=== PATIENT | male | born 1975 | race Caucasian/White ===

== ENCOUNTER 2016-08-30 07:40 | Observation (INO) | payer OTHER ==
[2016-08-30] MEDS ORDERED: Nitroglycerin 0.4 MG Tab.SL ONE (07:44)
[2016-08-30] MEDS ORDERED: Nitroglycerin 0.4 MG Tab.SL SL PRN (07:45)
--- NOTE | 2016-08-30 07:53 | EDM.PDOC ---
[id number] 4d AMBULANCE Time Seen by Provider: 08/30/16 07:46 Source of Information: Reports: Patient History Limitations: Reports: No Limitations - History of Present Illness INITIAL COMMENTS - FREE TEXT/NARRATIVE: History of present illness: [] Patient presents by EMS after having sudden onset of constricting chest pain at 7 AM while he was putting on his shoes getting ready to go to work. He states last night he did not feel well with fatigue and mild shortness of breath. He denied any chest pain last night. Patient states that when the chest pain started he became short of breath, sweaty and weak. Patient denies any cardiac history or family history of cardiac disease. Review of systems: As per history of present illness and below otherwise all systems reviewed and negative. Past medical history: As per history of present illness and as reviewed below otherwise noncontributory. Surgical history: As per history of present illness and as reviewed below otherwise noncontributory. Social history: No reported history of drug or alcohol abuse. Family history: As per history of present illness and as reviewed below otherwise noncontributory. Physical exam: General: Well developed, well nourished in NAD HEENT: Atraumatic, normocephalic, pupils reactive, negative for conjunctival pallor or scleral icterus, mucous membranes moist, throat clear, neck supple, nontender, trachea midline. Lungs: Clear to auscultation, breath sounds equal bilaterally, chest nontender. Heart: S1S2, regular, negative for clicks, rubs, or JVD. Abdomen: Soft, nondistended, nontender. Negative for masses or hepatosplenomegaly. Negative for costovertebral tenderness. Pelvis: Stable nontender. Genitourinary: Deferred. Rectal: Deferred. Extremities: Atraumatic, negative for cords or calf pain. Neurovascular unremarkable. Neuro: Awake, alert, oriented. Cranial nerves II through XII unremarkable. Cerebellum unremarkable. Motor and sensory unremarkable throughout. Exam nonfocal. Diagnostics: [] EKG and labs show no signs of acute ischemia percent her troponin is negative Therapeutics: [] Nitroglycerin given pain went from a 3/10 to a 0/10 with a total of 4 nitroglycerin tabs Impression: [] Acute coronary syndrome Plan: [] Admit for observation, rule out MT Definitive disposition and diagnosis as appropriate pending reevaluation and review of above. chest Pain Score (Numeric/FACES): 3 - Related Data Allergies Allergy/AdvReac Type Severity Reaction Status Date / Time No Known Allergies Allergy Verified 08/30/16 07:42 Home Meds: Home Meds . [No Known Home Meds] 08/30/16 [History] ED ROS GENERAL - Review of Systems Review Of Systems: See Below (See history of present illness) ED EXAM, GENERAL - Physical Exam Exam: See Below (See history of present illness) Course - Vital Signs Last Recorded V/S: Last Vital Signs Temp 36.7 C 08/30/16 09:24 Pulse 68 08/30/16 10:05 Resp 17 08/30/16 10:05 BP 133/93 H 08/30/16 10:05 Pulse Ox 95 08/30/16 10:05 - Orders/Labs/Meds Orders: Active Orders 24 hr Category Date Time Status Cardiac Monitoring [RC] Q8H Care 08/30/16 07:43 Active Chest 1V Frontal [CR] Stat Exams 08/30/16 07:41 Taken Labs: Laboratory Tests 08/30/16 08/30/16 08/30/16 Range/Units 07:49 07:49 07:49 WBC 4.94 (4.0-11.0) K/uL RBC 4.92 (4.50-5.90) M/uL Hgb 14.8 (13.0-17.0) g/dL Hct 43.4 (38.0-50.0) % MCV 88.2 (80.0-98.0) fL MCH 30.1 (27.0-32.0) pg MCHC 34.1 (31.0-37.0) g/dL RDW Std Deviation 39.5 (28.0-62.0) fl RDW Coeff of [place] 12 (11.0-15.0) % Plt Count 205 (150-400) K/uL MPV 9.70 (7.40-12.00) fL Neut % (Auto) 65.2 (48.0-80.0) % Lymph % (Auto) 25.3 (16.0-40.0) % [place] % (Auto) 6.1 (0.0-15.0) % Eos % (Auto) 2.8 (0.0-7.0) % Baso % (Auto) 0.6 (0.0-1.5) % Neut # (Auto) 3.2 (1.4-5.7) K/uL Lymph # (Auto) 1.3 (0.6-2.4) K/uL [place] # (Auto) 0.3 (0.0-0.8) K/uL Eos # (Auto) 0.1 (0.0-0.7) K/uL Baso # (Auto) 0.0 (0.0-0.1) K/uL Nucleated RBC % 0.0 /100WBC Nucleated RBCs # 0 K/uL Sodium 139 (136-146) mmol/L Potassium 3.9 (3.5-5.1) mmol/L Chloride 109 (98-110) mmol/L Carbon Dioxide 19 L (21-31) mmol/L BUN 18 (6.0-23.0) mg/dL Creatinine 1.1 (0.6-1.5) mg/dL Est Cr Clr Drug Dosing 95.04 mL/min Estimated GFR (MDRD) > 60.0 ml/min Glucose 113 H (60-110) mg/dL Calcium 9.2 (8.8-10.8) mg/dL Total Bilirubin 0.8 (0.1-1.5) mg/dL AST 29 (5-40) IU/L ALT 56 H (8-54) IU/L Alkaline Phosphatase 38 L (40-150) Troponin I < 0.10 (0.0-0.29) NG/ML Total Protein 6.9 (6.0-8.0) g/dL Albumin 4.3 (3.5-5.0) g/dL Globulin 2.6 (2.0-3.5) g/dL Albumin/Globulin Ratio 1.7 (1.3-2.8) Meds: Medications Discontinued Medications Generic Name Dose Route Start Last Admin Trade Name Freq PRN Reason Stop Dose Admin Sodium Chloride 1,000 mls @ 999 mls/hr 08/30/16 08:32 08/30/16 09:35 Normal Saline IV 08/30/16 09:32 999 mls/hr .Bolus ONE Administration Nitroglycerin 0.4 mg 08/30/16 07:45 08/30/16 07:46 Nitrostat SL 08/30/16 07:56 0.4 mg Q5M PRN Administration Chest Pain Nitroglycerin Confirm 08/30/16 07:44 08/30/16 07:46 Nitrostat Administered 08/30/16 07:45 Not Given Dose 0.4 mg .ROUTE .STK-MED ONE Nitroglycerin 1 gm 08/30/16 07:54 08/30/16 08:24 Nitro-Bid 2% TOP 08/30/16 07:55 Not Given ONETIME ONE Departure - Departure Time of Disposition: 10:19 Disposition: Refer to Observation Condition: good Clinical Impression: Acute coronary syndrome - My Orders Last 24 Hours: My Active Orders 08/30/16 07:41 Chest 1V Frontal [CR] Stat 08/30/16 07:43 Cardiac Monitoring [RC] Q8H - Assessment/Plan Last 24 Hours: My Active Orders 08/30/16 07:41 Chest 1V Frontal [CR] Stat 08/30/16 07:43 Cardiac Monitoring [RC] Q8H
[2016-08-30] MEDS ORDERED: Nitroglycerin 2% Oint 1 GM UD Packet TOP ONE (07:54)
[2016-08-30 08:22] LABS: CHLORIDE,CL 109 mmol/L (98-110); SODIUM,NA 139 mmol/L (136-146)
[2016-08-30] MEDS ORDERED: Sodium Chloride 0.9% 1,000 ML IV ONE (08:32)
[2016-08-30] MEDS ORDERED: Ondansetron 4 MG Tab.DIS PO PRN (11:08)
[2016-08-30] MEDS ORDERED: Acetaminophen 325 MG Tab PO PRN (11:08)
[2016-08-30] MEDS ORDERED: Temazepam 15 MG Cap PO PRN (11:08)
[2016-08-30] MEDS ORDERED: Bisacodyl 5 MG Tab PO PRN (11:08)
[2016-08-30] MEDS ORDERED: Morphine 2 MG/ML Syringe IVPUSH PRN (11:08)
[2016-08-30] MEDS: Pantoprazole 40 MG Tab.CR PO SCH ×2 (11:31→16:38)
--- NOTE | 2016-08-30 11:31 | PCM.HP ---
H&P History of Present Illness - General Date of Service: 08/30/16 Admit Problem/Dx: Admission Diagnosis/Problem Admission Diagnosis/Problem Chest pain - History of Present Illness Initial Comments - Free Text/Narative: He noted severe crushing central chest pain this am. He called 911. When EMS arrived he was given aspirin and nitroglycerin which resulted in improvement in symptoms. He now feels much better. He has a history of HTN and dyslipidemia. He has feelings of acid reflex nearly every morning. chest Pain Score (Numeric/FACES): 3 - Related Data Allergies/Adverse Reactions: Allergies Allergy/AdvReac Type Severity Reaction Status Date / Time No Known Allergies Allergy Verified 08/30/16 07:42 Home Medications: Home Meds . [No Known Home Meds] 08/30/16 [History] Past Medical History - Past Health History Medical/Surgical History: Denies Medical/Surgical History HEENT History: Reports: Impaired Vision Cardiovascular History: Reports: High Cholesterol, Hypertension Other Cardiovascular History: Not on Medication Respiratory History: Reports: Asthma Gastrointestinal History: Denies: Cirrhosis Genitourinary History: Denies: Chronic Renal Insuffiency Musculoskeletal History: Reports: None Neurological History: Reports: None. Denies: Brain Injury, MS Endocrine/Metabolic History: Denies: Diabetes, Type I, Diabetes, Type II Hematologic History: Denies: Anticoagulation Therapy Oncologic (Cancer) History: Reports: None - Infectious Disease History Infectious Disease History: Reports: Chicken pox, Influenza - Past Surgical History HEENT Surgical History: Reports: Tonsillectomy Cardiovascular Surgical History: Reports: None Respiratory Surgical History: Reports: None Neurological Surgical History: Reports: Other (see below) Other Neurological Surgeries/Procedures: Had head suregry to remove sharpnel a long time ago Musculoskeletal Surgical History: Reports: Carpal tunnel Social & Family History - Family History Family Medical History: Noncontributory HEENT: Reports: Impaired vision Cardiac: Reports: High cholesterol, Hypertension : Reports: Other (see below) Other Family History: Prostate Ca-Father Endocrine/Metabolic: Reports: Diabetes, type II Other Endocrine/Metabolic Family History: Mother Oncologic: Reports: Prostate - Tobacco Use Smoking Status *Q: Never Smoker Second Hand Smoke Exposure: Yes - Caffeine Use Caffeine Use: Reports: Coffee Caffeine Use Comment: 2 cups a day - Alcohol Use Days Per Week of Alcohol Use: 2 Number of Drinks Per Day: 2 Total Drinks Per Week: 4 Date of Last Drink: 08/16/16 - Recreational Drug Use Recreational Drug Use: No H&P Review of Systems - Review of Systems: Review Of Systems: See Below General: Denies: Fever, Chills HEENT: Denies: Sore Throat Pulmonary: Denies: Shortness of Breath, Cough Cardiovascular: Reports: Chest Pain. Denies: Edema Gastrointestinal: Denies: Abdominal Pain, Black Stool, Difficulty Swallowing, Hematemesis, Hematochezia Genitourinary: Denies: Dysuria, Frequency, Hematuria Exam - Exam Exam: See Below - Vital Signs Vital Signs: Last Vital Signs Temp 98.4 F 08/30/16 10:20 Pulse 66 08/30/16 10:20 Resp 18 08/30/16 10:20 BP 142/94 H 08/30/16 10:20 Pulse Ox 95 08/30/16 10:20 Weight: 114.2 kg - Exam General: Alert, Oriented HEENT: EOMI Neck: Trachea Midline Lungs: Clear to Auscultation, Normal Respiratory Effort Cardiovascular: Regular Rate, Regular Rhythm Abdomen: Soft. No: Distention, Guarding, Rebound, Tenderness Extremities: No: Edema Neurological: Cranial Nerves Intact, Normal Speech Neuro Extensive - Mental Status: Alert, Oriented x3 Neuro Extensive - Motor, Sensory, Reflexes: No: Expressive Aphasia, Facial palsy (L), Facial Palsy (R) - Patient Data Result Diagrams: 08/30/16 07:49 08/30/16 07:49 [place] Results last 24 hrs: EKG: NSR *Q Meaningful Use (ADM) - VTE *Q VTE Criteria *Q: - Stroke *Q Stroke Criteria *Q: - AMI *Q AMI Criteria *Q: - Problem List (1) Chest pain SNOMED Code(s): 81514156 ICD Code: R07.9 - CHEST PAIN, UNSPECIFIED Status: Acute Current Visit: Yes Problem List Initiated/Reviewed/Updated: Yes Orders Last 24hrs: Active Orders 24 hr Category Date Time Status Patient Status [ADT] Routine ADT 08/30/16 11:08 Active Antiembolic Devices [RC] PER UNIT ROUTINE Care 08/30/16 11:11 Active Oxygen Therapy [RC] PRN Care 08/30/16 11:08 Active Telemetry Monitoring [Cardiac Monitoring] [RC] Q8H Care 08/30/16 10:04 Active VTE/DVT Education [RC] PER UNIT ROUTINE Care 08/30/16 11:08 Active Vital Signs [RC] Q4H Care 08/30/16 11:08 Active Heart Healthy Diet [DIET] Diet 08/30/16 Dinner Active CMP [COMPREHENSIVE METABOLIC PN,CMP] [CHEM] Routine Lab 08/31/16 03:00 Ordered LIPID PANEL [CHEM] Routine Lab 08/31/16 03:00 Ordered TROPONIN I [CHEM] Q6H Lab 08/30/16 15:00 Ordered TROPONIN I [CHEM] Q6H Lab 08/30/16 21:00 Ordered TROPONIN I [CHEM] Q6H Lab 08/31/16 03:00 Ordered Acetaminophen [Tylenol] Med 08/30/16 11:08 Active 650 mg PO Q4H PRN Bisacodyl [Dulcolax] Med 08/30/16 11:08 Active 5 mg PO DAILY PRN Morphine Med 08/30/16 11:08 Active 2 mg IVPUSH Q2H PRN Ondansetron [Zofran ODT] Med 08/30/16 11:08 Active 4 mg PO Q4H PRN Pantoprazole [ProTONIX] Med 08/30/16 11:15 Active 40 mg PO BIDAC Temazepam [Restoril] Med 08/30/16 11:08 Active 15 mg PO BEDTIME PRN Sequential Compression Device [OM.PC] Per Unit Routine Oth 08/30/16 11:09 Ordered Resuscitation Status Routine Resus Stat 08/30/16 11:08 Ordered Medication Orders Acetaminophen (Tylenol) 650 mg PO Q4H PRN PRN Reason: Pain (Mild 1-3)/fever Bisacodyl (Dulcolax) 5 mg PO DAILY PRN PRN Reason: Constipation Morphine Sulfate (Morphine) 2 mg IVPUSH Q2H PRN PRN Reason: Pain (severe 7-10) Stop: 08/31/16 11:10 Ondansetron HCl (Zofran Odt) 4 mg PO Q4H PRN PRN Reason: nausea, able to take PO Pantoprazole Sodium (Protonix) 40 mg PO BIDAC JUSTIN Temazepam (Restoril) 15 mg PO BEDTIME PRN PRN Reason: Sleep Assessment/Plan Comment:: admit offered tranfer to a facility with further cardiology resources but he chooses to stay here realizing our limitions.
--- NOTE | 2016-08-30 19:59 | CR ---
EXAM DATE: 08/30/16 PATIENT'S AGE: 41 Patient: ALEJANDRO THOMPSON Facility: [place], [place] Site . Site : [id number] Study: XRay Chest [id number]/12/2017 7:55:10 AM Ordering Physician: Doctor Woods Final Report: INDICATION: Chest pain. COMPARISON: none TECHNIQUE: Portable AP erect chest performed at 7:47 a.m. FINDINGS: The lungs are clear. The heart, mediastinum and pulmonary vessels are of normal size. There is no evidence of pleural fluid. IMPRESSION: Negative chest. Dictated by Mark Anthony Escalona MD @ Aug 30 2016 8:11AM (Electronic Signature) Report Signed by Proxy. NANCY
[2016-08-31 03:28] LABS: CHLORIDE,CL 109 mmol/L (98-110); SODIUM,NA 141 mmol/L (136-146)
[2016-08-31] MEDS: Pantoprazole 40 MG Tab.CR PO SCH (06:41)
--- NOTE | 2016-08-31 11:48 | PCM.DCSUM1 ---
Discharge Summary - Hospital Course Free Text/Narrative:: 41 yo male with no pmh was admitted to observation for chest pain on 08/30/16. His chest pain began during the night after walking downstairs. It was accompanied by SOB. EMS was called and they gave him nirtroglycerin after which his chest pain improved significantly. Chest pain was mild by the time he got to ED, and while there he received Nitroglycerin, after which his chest pain completely resolved and did not recur. He was monitored on telemetry and there were no abnormalities. His troponin was trended and was negative. His initial EKG was normal. He denies use of alcohol or tobacco. He has no family history of heart disease. He was informed that he will need to have a stress test which we will arrange to schedule for him. He will also be set up with appointment to see our law enforcement director He [facility] therefore he was instructed to call them for set-up. Admission Diagnosis: 1. Chest Pain Discharge Diagnosis: 1. Chest Pain, improved -aspirin 81 mg daily -Nitroglycerin 0.4 mg SL for chest pain -f/u stress test -f/u with law enforcement director, Dr. Rowan -f/u with [facility] 2. Dyspepsia, stable -start Protonix 40 mg daily -f/u with [facility] 3. Hyperlipidemia -TC 251, LDL 189, HDL 30, Chol/HDL 8.4, TG 160 -did not start any lipid lowering therapy due to elevated ALT at admission. Although it was only mildly elevated and di return to normal, patient should have someone monitor his medications closely. Therefore we instructed patient to f/u with [facility] to discuss starting cholesterol lowering therapy. 4. Elevated ALT, improved - Discharge Data Discharge Date: 08/31/16 Discharge Disposition: Home, Self-Care 01 Condition: Good - Patient Instructions Diet: Regular Diet as Tolerated Activity: As Tolerated, Rest and Relax Today Showering/Bathing: May Shower Notify Provider of: Fever, Increased Pain, Swelling and Redness, Nausea and/or Vomiting - Discharge Plan Prescriptions/Med Rec: Aspirin 81 mg PO ONETIME #30 tab.chew Nitroglycerin 0.4 mg SL ONETIME PRN #10 tab.subl PRN Reason: Chest Pain Pantoprazole [ProTONIX] 40 mg PO ACBREAKFAST #30 tab.cr Home Medications: Home Meds Aspirin 81 mg PO ONETIME #30 tab.chew 08/31/16 [Rx] Nitroglycerin 0.4 mg SL ONETIME PRN #10 tab.subl 08/31/16 [Rx] Pantoprazole [ProTONIX] 40 mg PO ACBREAKFAST #30 tab.cr 08/31/16 [Rx] Patient Handouts: Nonspecific Chest Pain, [id number], Acute Coronary Syndrome Forms: ED Department Discharge Referrals: PCP,None [Primary Care Provider] - - Discharge Summary/Plan Comment DC Time >30 min.: No - Patient Data Vitals - Most Recent: Last Vital Signs Temp 35.9 C 08/31/16 07:49 Pulse 68 08/31/16 07:49 Resp 20 08/31/16 07:49 BP 136/91 H 08/31/16 07:49 Pulse Ox 95 08/31/16 07:49 Weight - Most Recent: 114.2 kg I&O - Last 24 hours: Intake & Output 08/30/16 08/31/16 08/31/16 22:59 06:59 14:59 Intake Total 570 500 Output Total 700 1000 Balance -130 -500 Lab Results - Last 24 hrs: Laboratory Results - last 24 hr 08/30/16 08/30/16 08/31/16 Range/Units 15:08 20:58 03:00 Sodium (136-146) mmol/L Potassium (3.5-5.1) mmol/L Chloride (98-110) mmol/L Carbon Dioxide (21-31) mmol/L BUN (6.0-23.0) mg/dL Creatinine (0.6-1.5) mg/dL Est Cr Clr Drug Dosing mL/min Estimated GFR (MDRD) ml/min Glucose (60-110) mg/dL Calcium (8.8-10.8) mg/dL Total Bilirubin (0.1-1.5) mg/dL AST (5-40) IU/L ALT (8-54) IU/L Alkaline Phosphatase (40-150) Troponin I < 0.10 < 0.10 < 0.10 (0.0-0.29) NG/ML Total Protein (6.0-8.0) g/dL Albumin (3.5-5.0) g/dL Globulin (2.0-3.5) g/dL Albumin/Globulin Ratio (1.3-2.8) Triglycerides (10-190) mg/dL Cholesterol (131-240) mg/dL LDL Cholesterol, Calc (60-180) mg/dL VLDL Cholesterol (5-55) mg/dL HDL Cholesterol (40-80) mg/dL Cholesterol/HDL Ratio (3.3-6.0) / Range/Units 03:00 Sodium 141 (136-146) mmol/L Potassium 4.4 (3.5-5.1) mmol/L Chloride 109 (98-110) mmol/L Carbon Dioxide 24 (21-31) mmol/L BUN 16 (6.0-23.0) mg/dL Creatinine 1.1 (0.6-1.5) mg/dL Est Cr Clr Drug Dosing 95.04 mL/min Estimated GFR (MDRD) > 60.0 ml/min Glucose 97 (60-110) mg/dL Calcium 8.9 (8.8-10.8) mg/dL Total Bilirubin 1.0 (0.1-1.5) mg/dL AST 23 (5-40) IU/L ALT 50 (8-54) IU/L Alkaline Phosphatase 38 L (40-150) Troponin I (0.0-0.29) NG/ML Total Protein 6.4 (6.0-8.0) g/dL Albumin 4.2 (3.5-5.0) g/dL Globulin 2.2 (2.0-3.5) g/dL Albumin/Globulin Ratio 1.9 (1.3-2.8) Triglycerides 160 (10-190) mg/dL Cholesterol 251 H (131-240) mg/dL LDL Cholesterol, Calc 189 H (60-180) mg/dL VLDL Cholesterol 32 (5-55) mg/dL HDL Cholesterol 30 L (40-80) mg/dL Cholesterol/HDL Ratio 8.4 H (3.3-6.0) Med Orders - Current: Current Medications Acetaminophen (Tylenol) 650 mg PO Q4H PRN PRN Reason: Pain (Mild 1-3)/fever Bisacodyl (Dulcolax) 5 mg PO DAILY PRN PRN Reason: Constipation Ondansetron HCl (Zofran Odt) 4 mg PO Q4H PRN PRN Reason: nausea, able to take PO Pantoprazole Sodium (Protonix) 40 mg PO BIDAC JUSTIN Last Admin: 08/31/16 06:41 Dose: 40 mg Temazepam (Restoril) 15 mg PO BEDTIME PRN PRN Reason: Sleep Discontinued Medications Sodium Chloride (Normal Saline) 1,000 mls @ 999 mls/hr IV .Bolus ONE Stop: 08/30/16 09:32 Last Admin: 08/30/16 09:35 Dose: 999 mls/hr Morphine Sulfate (Morphine) 2 mg IVPUSH Q2H PRN PRN Reason: Pain (severe 7-10) Stop: 08/31/16 11:10 Nitroglycerin (Nitrostat) 0.4 mg SL Q5M PRN PRN Reason: Chest Pain Stop: 08/30/16 07:56 Last Admin: 08/30/16 07:46 Dose: 0.4 mg Nitroglycerin (Nitrostat) Confirm Administered Dose 0.4 mg .ROUTE .STK-MED ONE Stop: 08/30/16 07:45 Last Admin: 08/30/16 07:46 Dose: Not Given Nitroglycerin (Nitro-Bid 2%) 1 gm TOP ONETIME ONE Stop: 08/30/16 07:55 Last Admin: 08/30/16 08:24 Dose: Not Given *Q Meaningful Use (DIS) - VTE *Q VTE Criteria *Q: - Stroke *Q Stroke Criteria *Q: - AMI *Q AMI Criteria *Q:
[2016-08-31 12:04] VITALS: BP 114/71
== END 2016-08-31 13:30 | disposition home or self-care (01) ==
LOC: MW.ED 07:40 → MW.MS 10:08
PROVIDERS: ADMIT Family Medicine; ATTEND Family Medicine
DX: R07.89 Other chest pain (principal); K30 Functional dyspepsia; E78.5 Hyperlipidemia, unspecified; R74.0 Nonspecific elevation of levels of transaminase and lactic acid dehydrogenase [LDH]; I10 Essential (primary) hypertension; E78.00 Pure hypercholesterolemia, unspecified; J45.909 Unspecified asthma, uncomplicated; Z90.89 Acquired absence of other organs; Z98.890 Other specified postprocedural states
CPT/HCPCS: 36415; 71010; 80053; 80061; 83735; 84484; 85025; 93005; 96360; 99285; A9270; J7040; 96361; G0378

== ENCOUNTER 2018-08-22 17:07 | Emergency (ER) | payer OTHER ==
--- NOTE | 2018-08-22 17:44 | EDM.PDOC ---
ED HPI GENERAL MEDICAL PROBLEM - General Chief Complaint: Drug or Alcohol Abuse Stated Complaint: ALCOHAL--SELF HARM Time Seen by Provider: 08/22/18 17:22 - History of Present Illness INITIAL COMMENTS - FREE TEXT/NARRATIVE: HISTORY AND PHYSICAL: History of present illness: The patient is a 42-year-old male who comes in via EMS to the ED after consuming alcohol today and being found in his garage after passing out by his . According to the reports from EMS and Police, he and his are going through some rough times and she was planning on leaving him and he has been very sad and depressed. He denies suicidal ideation to me but there was some concern by EMS and the employment security officer that he does have weapons in the house and that he may have expressed that he wanted to "go to sleep" . Interpretation of that is unclear as the patient denies that and said he literally just wanted to go to sleep tonight and sleep off his alcohol. He says that he did eat something earlier but he has not had much hydration and he denies smoking and drug use. He does of a history of being in the and follows at the [facility] with Dr. Dixon. The patient denies any abdominal pain chest pain shortness of breath head neck or back pain and no extremity complaints. He says he doesn't recall passing out but he is not surprised by it as he does not drink on a regular basis but did have a few beers 2 days ago. He admits that he has been drinking intermittently because of some of the things going on in his personal life. He has a significant alcoholic history for alcoholism or chronic alcohol use. The patient denies that he is having any physical complaints whatsoever. When we talk about his family and his current situation he is somewhat tearful but says that he has 4 grandchildren here in [place] and he is planning on seeing them tomorrow and he would not do anything to be from them. His is at bedside and denies to me that he has expressed any intent to harm himself but that he has been very sad and depressed. There was some concern about the patient having guns in the household per the officer at bedside and the patient insists that they are always locked up because he has his grandchildren over to his house often and when he had a out in the house were just polymer swatcher and no weapons were outside of their secure location Review of systems: As per history of present illness and below otherwise all systems reviewed and negative. Past medical history: As per history of present illness and as reviewed below otherwise noncontributory. Surgical history: As per history of present illness and as reviewed below otherwise noncontributory. Social history: No reported history of drug or alcohol abuse. Family history: As per history of present illness and as reviewed below otherwise noncontributory. Physical exam: General: Well-developed well-nourished man who is nontoxic and moves easily in the ED without any complaints. He speaking clearly and easily in the ED. Vital signs were noted by me HEENT: Atraumatic, normocephalic, pupils reactive, negative for conjunctival pallor or scleral icterus, mucous membranes moist, throat clear, neck supple, nontender, trachea midline. There is no evidence of any scalp defects deformities or soft tissue swelling no fascial defects deformities or tenderness bite is normal teeth are normal TMs are normal and there is no nasal bleeding. There are no midline step-offs tenderness or defects of the cervical spine Lungs: Clear to auscultation, breath sounds equal bilaterally, chest nontender. Heart: S1S2, regular, rate and rhythm no overt murmurs Abdomen: Soft, nondistended, nontender. Negative for masses or hepatosplenomegaly. Negative for costovertebral tenderness. Pelvis: Stable nontender. Genitourinary: Deferred. Rectal: Deferred. Extremities: Atraumatic, negative for cords or calf pain. Neurovascular unremarkable. Full range of motion without defects or deficits and there is no soft tissue swelling erythema ecchymosis or soft tissue injuries Neuro: Awake, alert, oriented. Cranial nerves II through XII unremarkable. Cerebellum unremarkable. Motor and sensory unremarkable throughout. Exam nonfocal. Speech is intact Back: There are no midline step-offs or defects of the thoracic or lumbar spine no posterior rib or posterior pelvis tenderness and no soft tissue swelling defects or any evidence of trauma Diagnostics: EKG chest x-ray CT scan of the head Accu-Chek per EMS, CBC CMP troponin alcohol level TSH [employer]A [employer]rapeutics: O2 pulse ox monitor is at bedside and says that she does have resources and will help him get [facility]. I've advised the patient to pursue counseling as an outpatient and to return here if anything changes or evolves. I've also advised him to refrain from drinking alcohol as self-medication and to research other areas where he can have conversation and counseling such as the synagogue family and friends. He is awake alert and coherent and speaking to me clearly and both he and the are very grateful and said that they will return as needed but feel that they have a plan going forward. She is going to take him home and feels comfortable with that despite other issues that are going on in the household. Please also feel comfortable with this plan and will be available as needed. Did offer the patient observation admission and he declines at this time. Impression: Alcohol ingestion with syncope Definitive disposition and diagnosis as appropriate pending reevaluation and review of above. - Related Data Allergies Allergy/AdvReac Type Severity Reaction Status Date / Time No Known Allergies Allergy Verified 08/22/18 17:22 Home Meds: Home Meds . [No Known Home Meds] 08/22/18 [History] Past Medical History - Past Health History Medical/Surgical History: Denies Medical/Surgical History HEENT History: Reports: Other (See Below) Other HEENT History: wears glasses Cardiovascular History: Reports: High Cholesterol, Hypertension Other Cardiovascular History: Not on Medication for cholesterol - borderline Musculoskeletal History: Reports: Arthritis, Fracture Other Musculoskeletal History: hx of fx right wrist as a child Neurological History: Reports: None Psychiatric History: Reports: None Oncologic (Cancer) History: Reports: None - Infectious Disease History Infectious Disease History: Reports: Chicken Pox, Influenza - Past Surgical History HEENT Surgical History: Reports: Tonsillectomy Cardiovascular Surgical History: Reports: None Neurological Surgical History: Reports: Other (See Below) Other Neurological Surgeries/Procedures: Had head suregry to remove sharpnel a long time ago Musculoskeletal Surgical History: Reports: Carpal Tunnel Social & Family History - Family History Family Medical History: Noncontributory HEENT: Reports: Impaired Vision Cardiac: Reports: High Cholesterol, Hypertension : Reports: Other (See Below) Other Family History: Prostate Ca-Father Endocrine/Metabolic: Reports: Diabetes, type II Other Endocrine/Metabolic Family History: Mother Oncologic: Reports: Prostate - Tobacco Use Smoking Status *Q: Never Smoker - Caffeine Use Caffeine Use: Reports: Coffee, Energy Drinks, Soda, Tea Caffeine Use Comment: 2 cups a day - Recreational Drug Use Recreational Drug Use: No ED ROS GENERAL - Review of Systems Review Of Systems: ROS reveals no pertinent complaints other than HPI. ED EXAM, GENERAL - Physical Exam Exam: See Below (see Dictation) Course - Vital Signs Last Recorded V/S: Last Vital Signs Temp 36.8 C 08/22/18 17:19 Pulse 80 08/22/18 17:19 Resp BP 151/99 H 08/22/18 17:19 Pulse Ox 97 08/22/18 17:19 - Orders/Labs/Meds Orders: Active Orders 24 hr Category Date Time Status Blood Glucose Check, Bedside [RC] ONETIME Care 08/22/18 17:24 Active Cardiac Monitoring [RC] . DIRECTED Care 08/22/18 17:37 Active EKG Documentation Completion [RC] STAT Care 08/22/18 17:37 Active Oxygen Therapy, ED [RC] ASDIRECTED Care 08/22/18 17:37 Active Pulse Oximetry [RC] ASDIRECTED Care 08/22/18 17:37 Active Labs: Laboratory Tests 08/22/18 08/22/18 08/22/18 Range/Units 17:17 17:47 17:47 WBC 7.38 (4.0-11.0) K/uL RBC 5.00 (4.50-5.90) M/uL Hgb 15.4 (13.0-17.0) g/dL Hct 45.9 (38.0-50.0) % MCV 91.8 (80.0-98.0) fL MCH 30.8 (27.0-32.0) pg MCHC 33.6 (31.0-37.0) g/dL RDW Std Deviation 43.4 (28.0-62.0) fl RDW Coeff of [place] 13 (11.0-15.0) % Plt Count 225 (150-400) K/uL MPV 9.70 (7.40-12.00) fL Neut % (Auto) 75.5 (48.0-80.0) % Lymph % (Auto) 16.3 (16.0-40.0) % [place] % (Auto) 6.0 (0.0-15.0) % Eos % (Auto) 1.9 (0.0-7.0) % Baso % (Auto) 0.3 (0.0-1.5) % Neut # (Auto) 5.6 (1.4-5.7) K/uL Lymph # (Auto) 1.2 (0.6-2.4) K/uL [place] # (Auto) 0.4 (0.0-0.8) K/uL Eos # (Auto) 0.1 (0.0-0.7) K/uL Baso # (Auto) 0.0 (0.0-0.1) K/uL Nucleated RBC % 0.0 /100WBC Nucleated RBCs # 0 K/uL Sodium 142 (136-148) mmol/L Potassium 4.0 (3.5-5.1) mmol/L Chloride 105 (98-107) mmol/L Carbon Dioxide 23.7 (21.0-32.0) mmol/L BUN 14 (7.0-18.0) mg/dL Creatinine 1.3 (0.8-1.3) mg/dL Est Cr Clr Drug Dosing 79.59 mL/min Estimated GFR (MDRD) 60.0 ml/min Glucose 94 (74-106) mg/dL Calcium 8.9 (8.5-10.1) mg/dL Total Bilirubin 0.5 (0.2-1.0) mg/dL AST 33 (15-37) IU/L ALT 76 H (14-63) IU/L Alkaline Phosphatase 40 L (46-116) U/L Troponin I < 0.050 (0.000-0.056) ng/mL Total Protein 7.4 (6.4-8.2) g/dL Albumin 3.9 (3.4-5.0) g/dL Globulin 3.5 (2.6-4.0) g/dL Albumin/Globulin Ratio 1.1 (0.9-1.6) TSH 3rd Generation 3.06 (0.36-3.74) uIU/mL Urine Color YELLOW Urine Appearance CLEAR Urine pH 5.5 (5.0-8.0) Ur Specific [place] 1.020 (1.001-1.035) Urine Protein NEGATIVE (NEGATIVE) mg/dL Urine Glucose (UA) NEGATIVE (NEGATIVE) mg/dL Urine Ketones NEGATIVE (NEGATIVE) mg/dL Urine Occult Blood NEGATIVE (NEGATIVE) Urine Nitrite NEGATIVE (NEGATIVE) Urine Bilirubin NEGATIVE (NEGATIVE) Urine Urobilinogen 0.2 (<2.0) EU/dL Ur Leukocyte Esterase NEGATIVE (NEGATIVE) Ethyl Alcohol 78 mg/dL Departure - Departure Time of Disposition: 18:36 Disposition: Home, Self-Care 01 Condition: Good Clinical Impression: Alcohol ingestion Syncope Qualifiers: Syncope type: unspecified Qualified Code(s): R55 - Syncope and collapse - Discharge Information Referrals: PCP,Unknown [Primary Care Provider] - Forms: ED Department Discharge Additional Instructions: The following information is given to patients seen in the emergency department who are being discharged to home. This information is to outline your options for follow-up care. We provide all patients seen in our emergency department with a follow-up referral. The need for follow-up, as well as the timing and circumstances, are variable depending upon the specifics of your emergency department visit. If you don't have a primary care physician on staff, we will provide you with a referral. We always advise you to contact your personal physician following an emergency department visit to inform them of the circumstance of the visit and for follow-up with them and/or the need for any referrals to a consulting specialist. The emergency department will also refer you to a specialist when appropriate. This referral assures that you have the opportunity for followup care with a specialist. All of these measure are taken in an effort to provide you with optimal care, which includes your followup. Under all circumstances we always encourage you to contact your private physician who remains a resource for coordinating your care. When calling for followup care, please make the office aware that this follow-up is from your recent emergency room visit. If for any reason you are refused follow-up, please contact the [facility] emergency department at and ask to speak to the emergency department charge nurse. [facility]- [place] [address] [facility] and discussed with Dr. Dixon some of the issues going on and also addressed with him your blood pressure as needed. Push hydration and avoid alcohol as we discussed. Reduce sodium in her diet. Return to ER as needed and as we discussed. - My Orders Last 24 Hours: My Active Orders 08/22/18 17:24 Blood Glucose Check, Bedside [RC] ONETIME 08/22/18 17:37 Cardiac Monitoring [RC] . DIRECTED EKG Documentation Completion [RC] STAT Oxygen Therapy, ED [RC] ASDIRECTED Pulse Oximetry [RC] ASDIRECTED - Assessment/Plan Last 24 Hours: My Active Orders 08/22/18 17:24 Blood Glucose Check, Bedside [RC] ONETIME 08/22/18 17:37 Cardiac Monitoring [RC] . DIRECTED EKG Documentation Completion [RC] STAT Oxygen Therapy, ED [RC] ASDIRECTED Pulse Oximetry [RC] ASDIRECTED
--- NOTE | 2018-08-22 18:09 | CR ---
INDICATION: Chest pain, shortness of breath TECHNIQUE: Chest radiograph 1 view COMPARISON: None FINDINGS: Mediastinum: The mediastinum is normal in appearance. The heart silhouette is normal in size and morphology. Lung: Both lungs are unremarkable in appearance. No sign of pleural effusion seen. No pneumothorax is identified. Musculoskeletal: Unremarkable for age. IMPRESSION: 1. No acute cardiopulmonary disease is seen. Dictated by: Fabien Vang MD @ 08/22/2018 18:08:30 (Electronically Signed)
--- NOTE | 2018-08-22 18:16 | CT ---
INDICATION: Head injury from fall, patient is intoxicated. TECHNIQUE: CT Head without i.v. contrast. COMPARISON: None FINDINGS: CSF space: The ventricles are normal for age. Brain: No evidence of mass, acute infarction or hemorrhage is seen. No mass-effect or midline shift is seen. The brain parenchyma is otherwise normal in appearance with preservation of the walker-white matter junction. Calvarium: The visualized paranasal sinuses are well aerated. The mastoid air cells are clear. The visualized orbits are grossly unremarkable. The calvarium is unremarkable in appearance with no fractures identified. There is a well-circumscribed 9 mm nodule in the subcutaneous soft tissues of the left occipital region. This may represent a sebaceous cyst. IMPRESSION: 1. No evidence of acute infarction, intracranial hemorrhage, or mass-effect seen. Dictated by Fabien Vang MD @ 08/22/2018 6:14:45 PM Please note that all CT scans at this facility use dose modulation, iterative reconstruction, and/or weight-based dosing when appropriate to reduce radiation dose to as low as reasonably achievable. Dictated by: Fabien Vnag MD @ 08/22/2018 18:14:53 (Electronically Signed)
[2018-08-22 18:19] LABS: CHLORIDE,CL 105 mmol/L (98-107); SODIUM,NA 142 mmol/L (136-148)
[2018-08-22 18:55] VITALS: BP 144/96
== END 2018-08-22 18:55 | disposition home or self-care (01) ==
LOC: MW.ED 17:07
DX: R55 Syncope and collapse (principal); I10 Essential (primary) hypertension; E78.00 Pure hypercholesterolemia, unspecified
CPT/HCPCS: 36415; 70450; 71045; 80053; 81003; 84443; 84484; 85025; 93005; 99285; G0480; 99284

== ENCOUNTER 2018-09-18 01:11 | Emergency (ER) | payer OTHER ==
--- NOTE | 2018-09-18 01:27 | EDM.PDOC ---
ED HPI GENERAL MEDICAL PROBLEM - General Chief Complaint: Behavioral/Psych Stated Complaint: MENTAL HEALTH Time Seen by Provider: 09/18/18 01:14 - History of Present Illness INITIAL COMMENTS - FREE TEXT/NARRATIVE: HISTORY AND PHYSICAL: History of present illness: Patient 43-year-old white male presents with law enforcement for medical screening exam patient has been dealing with some depressive symptoms and has a scheduled appointment on Friday for evaluation and possible inpatient treatment he states he's been depressed off and on but the scheduled appointment and possible inpatient is been mitigated by his need to organize some things at his place of employment prior to his departure for inpatient therapy he's has no suicidal ideation now he is not intoxicated he is polite cooperative has a place to go in law enforcement is indeed in agreement with the circumstances of their involvement and his current posture Review of systems: As per history of present illness and below otherwise all systems reviewed and negative. Past medical history: As per history of present illness and as reviewed below otherwise noncontributory. Surgical history: As per history of present illness and as reviewed below otherwise noncontributory. Social history: No reported history of drug or alcohol abuse. Family history: As per history of present illness and as reviewed below otherwise noncontributory. Physical exam: HEENT: Atraumatic, normocephalic, pupils reactive, negative for conjunctival pallor or scleral icterus, mucous membranes moist, throat clear, neck supple, nontender, trachea midline. Lungs: Clear to auscultation, breath sounds equal bilaterally, chest nontender. Heart: S1S2, regular, negative for clicks, rubs, or JVD. Abdomen: Soft, nondistended, nontender. Negative for masses or hepatosplenomegaly. Negative for costovertebral tenderness. Pelvis: Stable nontender. Genitourinary: Deferred. Rectal: Deferred. Extremities: Atraumatic, negative for cords or calf pain. Neurovascular unremarkable. Neuro: Awake, alert, oriented. Cranial nerves II through XII unremarkable. Cerebellum unremarkable. Motor and sensory unremarkable throughout. Exam nonfocal. Diagnostics: None Therapeutics: None Impression: 1 medical screening exam #2 history of depression Definitive disposition and diagnosis as appropriate pending reevaluation and review of above. - Related Data Allergies Allergy/AdvReac Type Severity Reaction Status Date / Time No Known Allergies Allergy Verified 08/22/18 17:22 Home Meds: Home Meds . [No Known Home Meds] 08/22/18 [History] Past Medical History - Past Health History Medical/Surgical History: Denies Medical/Surgical History HEENT History: Reports: Other (See Below) Other HEENT History: wears glasses Cardiovascular History: Reports: High Cholesterol, Hypertension Other Cardiovascular History: Not on Medication for cholesterol - borderline Musculoskeletal History: Reports: Arthritis, Fracture Other Musculoskeletal History: hx of fx right wrist as a child Neurological History: Reports: None Psychiatric History: Reports: None Oncologic (Cancer) History: Reports: None - Infectious Disease History Infectious Disease History: Reports: Chicken Pox, Influenza - Past Surgical History HEENT Surgical History: Reports: Tonsillectomy Cardiovascular Surgical History: Reports: None Neurological Surgical History: Reports: Other (See Below) Other Neurological Surgeries/Procedures: Had head suregry to remove sharpnel a long time ago Musculoskeletal Surgical History: Reports: Carpal Tunnel Social & Family History - Family History Family Medical History: Noncontributory HEENT: Reports: Impaired Vision Cardiac: Reports: High Cholesterol, Hypertension : Reports: Other (See Below) Other Family History: Prostate Ca-Father Endocrine/Metabolic: Reports: Diabetes, type II Other Endocrine/Metabolic Family History: Mother Oncologic: Reports: Prostate - Caffeine Use Caffeine Use: Reports: Coffee, Energy Drinks, Soda, Tea Caffeine Use Comment: 2 cups a day ED ROS GENERAL - Review of Systems Review Of Systems: ROS reveals no pertinent complaints other than HPI. ED EXAM, GENERAL - Physical Exam Exam: See Below (dictation) Course - Vital Signs Last Recorded V/S: Last Vital Signs Temp 36.4 C 09/18/18 01:15 Pulse 103 H 09/18/18 01:15 Resp 18 09/18/18 01:15 BP 161/112 H 09/18/18 01:15 Pulse Ox 98 09/18/18 01:15 Departure - Departure Time of Disposition: 01:27 Disposition: Home, Self-Care 01 Condition: Good Clinical Impression: Encounter for medical screening examination - Discharge Information Referrals: PCP,None [Primary Care Provider] - Additional Instructions: The following information is given to patients seen in the emergency department who are being discharged to home. This information is to outline your options for follow-up care. We provide all patients seen in our emergency department with a follow-up referral. The need for follow-up, as well as the timing and circumstances, are variable depending upon the specifics of your emergency department visit. If you don't have a primary care physician on staff, we will provide you with a referral. We always advise you to contact your personal physician following an emergency department visit to inform them of the circumstance of the visit and for follow-up with them and/or the need for any referrals to a consulting specialist. The emergency department will also refer you to a specialist when appropriate. This referral assures that you have the opportunity for followup care with a specialist. All of these measure are taken in an effort to provide you with optimal care, which includes your followup. Under all circumstances we always encourage you to contact your private physician who remains a resource for coordinating your care. When calling for followup care, please make the office aware that this follow-up is from your recent emergency room visit. If for any reason you are refused follow-up, please contact the [facility] emergency department at and asked to speak to the emergency department charge nurse. Follow-up with primary medical doctor in psychiatric services as scheduled return as needed as discussed continue current medication
[2018-09-18 01:50] VITALS: BP 148/99
== END 2018-09-18 01:40 | disposition home or self-care (01) ==
LOC: MW.ED 01:11
DX: Z13.9 Encounter for screening, unspecified (principal); F32.9 Major depressive disorder, single episode, unspecified; I10 Essential (primary) hypertension
CPT/HCPCS: 99284

== ENCOUNTER 2019-09-25 13:28 | Emergency (ER) | payer OTHER ==
[2019-09-25] MEDS ORDERED: Sodium Chloride 0.9% 2.5 ML Syringe FLUSH PRN (13:43)
[2019-09-25] MEDS ORDERED: Sodium Chloride 0.9% 10 ML Syringe FLUSH PRN (13:43)
[2019-09-25] MEDS ORDERED: Aspirin 81 MG Tab.Chew PO ONE (13:58)
--- NOTE | 2019-09-25 14:00 | EDM.PDOC ---
ED HPI GENERAL MEDICAL PROBLEM - General Chief Complaint: Chest Pain Stated Complaint: CHEST PAIN Time Seen by Provider: 09/25/19 13:35 Source of Information: Reports: Patient History Limitations: Reports: No Limitations - History of Present Illness INITIAL COMMENTS - FREE TEXT/NARRATIVE: This patient is a 44-year-old male with a past medical history of hypertension hyperlipidemia presenting with chest pain. He reports the onset of substernal chest pressure around 8:30 AM this morning while at rest. Nothing makes the chest pain better or worse, it is been constant throughout the day, nonradiating. Denies any associated diaphoresis, palpitations, shortness of breath, nausea, or vomiting. No self treatment prior to arrival, no other complaints. Left Chest Pain Score (Numeric/FACES): 6 - Related Data Allergies Allergy/AdvReac Type Severity Reaction Status Date / Time No Known Allergies Allergy Verified 09/25/19 13:34 Home Meds: Home Meds . [No Known Home Meds] 08/22/18 [History] Past Medical History - Past Health History Medical/Surgical History: Denies Medical/Surgical History HEENT History: Reports: Other (See Below) Other HEENT History: wears glasses Cardiovascular History: Reports: High Cholesterol, Hypertension Other Cardiovascular History: Not on Medication for cholesterol - borderline Musculoskeletal History: Reports: Arthritis, Fracture Other Musculoskeletal History: hx of fx right wrist as a child Neurological History: Reports: None Psychiatric History: Reports: None Endocrine/Metabolic History: Reports: Obesity/BMI 30+ Oncologic (Cancer) History: Reports: None - Infectious Disease History Infectious Disease History: Reports: Chicken Pox, Influenza - Past Surgical History HEENT Surgical History: Reports: Tonsillectomy Cardiovascular Surgical History: Reports: None Neurological Surgical History: Reports: Other (See Below) Other Neurological Surgeries/Procedures: Had head suregry to remove sharpnel a long time ago Musculoskeletal Surgical History: Reports: Carpal Tunnel Social & Family History - Family History Family Medical History: Noncontributory HEENT: Reports: Impaired Vision Cardiac: Reports: High Cholesterol, Hypertension : Reports: Other (See Below) Other Family History: Prostate Ca-Father Endocrine/Metabolic: Reports: Diabetes, type II Other Endocrine/Metabolic Family History: Mother Oncologic: Reports: Prostate - Tobacco Use Smoking Status *Q: Never Smoker Second Hand Smoke Exposure: No - Caffeine Use Caffeine Use: Reports: None Caffeine Use Comment: 2 cups a day - Recreational Drug Use Recreational Drug Use: No ED ROS GENERAL - Review of Systems Review Of Systems: See Below Constitutional: Denies: Fever, Chills HEENT: Reports: No Symptoms Respiratory: Denies: Shortness of Breath, Pleuritic Chest Pain, Cough Cardiovascular: Reports: Chest Pain. Denies: Edema, Lightheadedness, Syncope Endocrine: Reports: No Symptoms GI/Abdominal: Denies: Abdominal Pain, Nausea, Vomiting : Reports: No Symptoms Musculoskeletal: Denies: Back Pain Skin: Denies: Pallor Neurological: Denies: Headache Psychiatric: Reports: No Symptoms Hematologic/Lymphatic: Reports: No Symptoms Immunologic: Reports: No Symptoms ED EXAM, GENERAL - Physical Exam Exam: See Below Free Text/Narrative:: Vital signs reviewed. Nursing notes reviewed. Constitutional: Awake, alert, non-distressed. Head: Normocephalic, atraumatic. Eyes: EOMI, conjunctiva normal, no discharge, no scleral icterus. Ears, Nose, Throat: External ears and nose normal, moist oral mucosa. Cardiovascular: 2+ radial pulses bilaterally, capillary refill less than 2 seconds. RRR, no M/R/G Pulmonary: normal work of breathing, no accessory muscle use. CTA BL Abdomen/GI: Soft, nontender, nondistended, no guarding or rigidity, no masses. Musculoskeletal: No deformities. Integumentary: Appropriate color for ethnicity, warm, dry, no pallor or jaundice , no rash. Neurologic: Alert, answering questions appropriately, normal speech, no facial droop, moving all extremities well. Psychiatric: Appropriate mood and affect, normal thought process. EKG INTERPRETATION EKG Interpretation Comments: 12-Lead ECG Interpretation Acquired: 1:32 PM Rhythm: Sinus rhythm Rate: 65 bpm Victor: Normal Intervals: Normal Ectopy: None Ischemic Changes: None apparent RV Strain: No obvious RV strain pattern. ST Segments/T-Waves: Isolated T wave inversions in lead III, along with Q waves. These are not appreciated in leads II or aVF or elsewhere. Interpretation: Abnormal EKG Course - Vital Signs Text/Narrative:: 44-year-old male presenting with chest pain. Patient [hemodynamically stable, afebrile], well-appearing, looks nontoxic. Differential diagnosis includes but is not limited to: Acute coronary syndrome, pulmonary embolism, STEMI, thoracic aortic dissection, pneumothorax, Boerhaave syndrome, GERD, atypical chest pain, pleurisy, pericardial effusion, etc. Initially mildly hypertensive on arrival but well-appearing. Twelve-lead EKG was immediately obtained, showing no acute ischemia or ectopy. Full dose aspirin was given. IV access was established and labs were sent. CBC is unremarkable. Chemistry panel shows mildly elevated BUN at 21. Troponin is negative x2. Hepatic markers are unremarkable. Chest x-ray is clear. Pain improved after aspirin. 2 negative troponins and 2 nonischemic EKGs. HEART score is 1, with very low risk for 30-day Mace. Consider pulmonary embolism but no resting tachycardia, hypoxia. No pleuritic chest pain, no shortness of breath, no leg swelling. Equal radial pulses, pain does not radiate to the back, and the patient is not markedly hypertensive. No vomiting to suggest esophageal rupture. No objective evidence of myocardial ischemia. Patient is well-appearing and work-up is negative to date. Plan to discharge home with outpatient cardiology follow-up. Recommended low-dose aspirin daily until this occurs. Tylenol Motrin OTC for pain as needed. Strict emergency department return precautions were provided, patient indicated understanding. All questions were answered prior to departure. Discharged in good condition. Last Recorded V/S: Last Vital Signs Temp 36.4 C 09/25/19 13:31 Pulse 56 L 09/25/19 15:39 Resp 12 09/25/19 15:39 BP 119/77 09/25/19 15:39 Pulse Ox 97 09/25/19 15:39 - Orders/Labs/Meds Orders: Active Orders 24 hr Category Date Time Status Cardiac Monitoring [RC] . DIRECTED Care 09/25/19 13:59 Active EKG 12 Lead [EKG Documentation Completion] [RC] STAT Care 09/25/19 14:33 Active EKG Documentation Completion [RC] STAT Care 09/25/19 13:43 Active Pulse Oximetry [RC] ASDIRECTED Care 09/25/19 13:59 Active Saline Lock Insert [OM.PC] Stat Oth 09/25/19 13:43 Ordered Labs: Laboratory Tests 09/25/19 09/25/19 09/25/19 Range/Units 13:42 13:42 14:44 WBC 4.43 (4.0-11.0) K/uL RBC 4.91 (4.50-5.90) M/uL Hgb 14.8 (13.0-17.0) g/dL Hct 44.1 (38.0-50.0) % MCV 89.8 (80.0-98.0) fL MCH 30.1 (27.0-32.0) pg MCHC 33.6 (31.0-37.0) g/dL RDW Std Deviation 41.3 (28.0-62.0) fl RDW Coeff of [place] 13 (11.0-15.0) % Plt Count 197 (150-400) K/uL MPV 9.50 (7.40-12.00) fL Neut % (Auto) 64.9 (48.0-80.0) % Lymph % (Auto) 25.3 (16.0-40.0) % [place] % (Auto) 5.9 (0.0-15.0) % Eos % (Auto) 3.4 (0.0-7.0) % Baso % (Auto) 0.5 (0.0-1.5) % Neut # (Auto) 2.9 (1.4-5.7) K/uL Lymph # (Auto) 1.1 (0.6-2.4) K/uL [place] # (Auto) 0.3 (0.0-0.8) K/uL Eos # (Auto) 0.2 (0.0-0.7) K/uL Baso # (Auto) 0.0 (0.0-0.1) K/uL Nucleated RBC % 0.0 /100WBC Nucleated RBCs # 0 K/uL Sodium 142 (136-148) mmol/L Potassium 4.3 (3.5-5.1) mmol/L Chloride 105 (98-107) mmol/L Carbon Dioxide 28.7 (21.0-32.0) mmol/L BUN 21 H (7.0-18.0) mg/dL Creatinine 1.2 (0.8-1.3) mg/dL Est Cr Clr Drug Dosing 84.43 mL/min Estimated GFR (MDRD) > 60.0 ml/min Glucose 88 (74-106) mg/dL Calcium 8.4 L (8.5-10.1) mg/dL Total Bilirubin 0.8 (0.2-1.0) mg/dL AST 10 L (15-37) IU/L ALT 32 (14-63) IU/L Alkaline Phosphatase 40 L (46-116) U/L Troponin I < 0.050 < 0.050 (0.000-0.056) ng/mL Total Protein 7.0 (6.4-8.2) g/dL Albumin 3.9 (3.4-5.0) g/dL Globulin 3.1 (2.6-4.0) g/dL Albumin/Globulin Ratio 1.3 (0.9-1.6) Meds: Medications Discontinued Medications Generic Name Dose Route Start Last Admin Trade Name Freq PRN Reason Stop Dose Admin Aspirin 324 mg 09/25/19 13:58 09/25/19 14:06 Aspirin PO 09/25/19 13:59 324 mg ONETIME ONE Administration Sodium Chloride 10 ml 09/25/19 13:43 09/25/19 13:55 Saline Flush FLUSH 10 ml ASDIRECTED PRN Administration Keep Vein Open Sodium Chloride 2.5 ml 09/25/19 13:43 09/25/19 13:55 Saline Flush FLUSH 2.5 ml ASDIRECTED PRN Administration Keep Vein Open Departure - Departure Time of Disposition: 15:32 Disposition: Home, Self-Care 01 Condition: Good Clinical Impression: Atypical chest pain Instructions: Nonspecific Chest Pain, Adult Referrals: Javon Jasso, [facility] [Primary Care Provider] - 1 Week (I recommend following up your with your state fire marshal or your primary care doctor the next 1 to 2 weeks for reevaluation of your chest pain.) Forms: ED Department Discharge Additional Instructions: Thank you for choosing the [facility] emergency department in [place] for your medical needs today. It was a pleasure caring for you. You were seen in the emergency department for chest pain. Your EKGs, blood work , and x-rays all look reassuring. We do not have an obvious explanation for your chest pain but we do not see a dangerous cause this point such as a heart attack. I do recommend [id number] acetaminophen and ibuprofen for pain and it is not a bad idea to take a baby aspirin, 81 mg daily until seen by your state fire marshal or your primary doctor. I recommend following up with your state fire marshal in the next 1 to 2 weeks for reevaluation. Please return the emergency department immediately if your symptoms worsen or if you feel worse. The following information is given to patients seen in the emergency department who are being discharged. This information is to outline your options for follow -up care. We provide all patients seen in our emergency department with a follow -up referral. The need for follow-up, as well as the timing and circumstances, are variable depending upon the specifics of your emergency department visit. If you don't have a primary care physician on staff, we will provide you with a referral. We always advise you to contact your personal physician following an emergency department visit to inform them of the circumstance of the visit and for follow-up with them and/or the need for any referrals to a consulting specialist. The emergency department will also refer you to a specialist when appropriate. This referral assures that you have the opportunity for follow-up care with a specialist. All of these measure are taken in an effort to provide you with optimal care, which includes your follow-up. Under all circumstances we always encourage you to contact your private physician who remains a resource for coordinating your care. When calling for follow-up care, please make the office aware that this follow-up is from your recent emergency room visit. If for any reason you are refused follow-up, please contact the [facility] Emergency Department at and asked to speak to the emergency department charge nurse. If you do not have a primary care physician that is caring for you, you can contact these clinics below to set up an appointment to establish care: [facility] - Primary Care [address] [place] [id number] [address] Sepsis Event Note - Evaluation Sepsis Screening Result: No Definite Risk - Focused Exam Vital Signs: Vital Signs Temp Pulse Resp BP Pulse Ox 09/25/19 15:39 56 L 12 119/77 97 09/25/19 14:46 55 L 11 L 118/71 96 09/25/19 13:57 60 12 124/80 96 09/25/19 13:31 36.4 C 82 18 144/99 H 96 Date Exam was Performed: 09/25/19 Time Exam was Performed: 19:47 - My Orders Last 24 Hours: My Active Orders 09/25/19 13:59 Cardiac Monitoring [RC] . DIRECTED Pulse Oximetry [RC] ASDIRECTED 09/25/19 14:33 EKG 12 Lead [EKG Documentation Completion] [RC] STAT - Assessment/Plan Last 24 Hours: My Active Orders 09/25/19 13:59 Cardiac Monitoring [RC] . DIRECTED Pulse Oximetry [RC] ASDIRECTED 09/25/19 14:33 EKG 12 Lead [EKG Documentation Completion] [RC] STAT
[2019-09-25 14:11] LABS: BLOOD UREA NITROGEN,BUN 21 mg/dL (7.0-18.0); CARBON DIOXIDE,CO2 28.7 mmol/L (21.0-32.0); CHLORIDE,CL 105 mmol/L (98-107); GLUCOSE RANDOM 88 mg/dL (74-106); POTASSIUM,K 4.3 mmol/L (3.5-5.1); SODIUM,NA 142 mmol/L (136-148)
--- NOTE | 2019-09-25 15:05 | CR ---
INDICATION: Chest pain COMPARISON: May 07, 2019 TECHNIQUE: A single view chest radiograph was acquired as an AP portable upright study FINDINGS: TUBES AND LINES: None. HEART AND MEDIASTINUM: The heart size is normal. The mediastinal contour appears normal for patient age. LUNGS AND PLEURAL SPACES: The lungs appear normal.There pleural spaces are unremarkable. OSSEOUS STRUCTURES: Age-appropriate appearance. No acute focal finding. IMPRESSION: No evidence of active pulmonary disease. Dictated by Juventino Douglas MD @ Sep 25 2019 3:03PM Signed by Dr. Juventino Douglas @ Sep 25 2019 3:04PM
[2019-09-25 15:40] VITALS: BP 119/77; PULSE 56
== END 2019-09-25 15:39 | disposition home or self-care (01) ==
LOC: MW.ED 13:28
DX: R07.89 Other chest pain (principal); I10 Essential (primary) hypertension; E66.9 Obesity, unspecified; Z68.30 Body mass index [BMI] 30.0-30.9, adult
CPT/HCPCS: 36415; 71045; 80053; 84484; 85025; 93005; 99285; A9270; 99282

== ENCOUNTER 2020-04-28 06:43 | Day surgery (SDC) | payer OTHER ==
[~2020-04-28 06:43] MED LIST: Lactated Ringers 1,000 ML IV SCH; ceFAZolin 2 GM in Premix Bag 1 BAG IV ONE
[2020-04-28] MEDS ORDERED: Bupivacaine 25%/EPINEPHrine/PF 30 ML ONE (07:25)
--- NOTE | 2020-04-28 07:27 | PCM.PREANE ---
Preanesthetic Assessment - Anesthesia/Transfusion/Family Hx Anesthesia History: Prior Anesthesia Without Reaction Family History of Anesthesia Reaction: No Transfusion History: No Prior Transfusion(s) Intubation History: Unknown - Review of Systems General: No Symptoms Pulmonary: No Symptoms Cardiovascular: No Symptoms Gastrointestinal: No Symptoms Neurological: No Symptoms Other: Reports: None - Physical Assessment NPO Status Date: 04/27/20 Vital Signs: Last Vital Signs Temp 97.5 F 04/28/20 06:56 Pulse 72 04/28/20 06:56 Resp 14 04/28/20 06:56 BP 134/87 04/28/20 06:56 Pulse Ox 95 04/28/20 06:56 Height: 6 ft Weight: 104.326 kg ASA Class: 2 Mental Status: Alert & Oriented x3 Airway Class: Mallampati = 2 Dentition: Reports: Normal Dentition ROM/Head Extension: Full Lungs: Clear to Auscultation, Normal Respiratory Effort Cardiovascular: Regular Rate, Regular Rhythm - Allergies Allergies/Adverse Reactions: Allergies Allergy/AdvReac Type Severity Reaction Status Date / Time No Known Allergies Allergy Verified 04/28/20 07:03 - Blood Blood Available: No - Anesthesia Plan Pre-Op Medication Ordered: None - Acknowledgements Anesthesia Type Planned: General Anesthesia, MAC Pt an Appropriate Candidate for the Planned Anesthesia: Yes Alternatives and Risks of Anesthesia Discussed w Pt/Guardian: Yes Pt/Guardian Understands and Agrees with Anesthesia Plan: Yes Additional Comments: PMH: none PLAN: surgeons request-- GA with ett if prone, or mac with fio2< 30% if mac PreAnesthesia Questionnaire - Past Health History Medical/Surgical History: Denies Medical/Surgical History HEENT History: Reports: Other (See Below) Other HEENT History: reading glasses Cardiovascular History: Reports: Hypertension Other Cardiovascular History: hx HTN-not on medication at present Respiratory History: Reports: None Gastrointestinal History: Reports: None Genitourinary History: Reports: None Musculoskeletal History: Reports: Arthritis, Fracture Other Musculoskeletal History: hx of fx right wrist as a child Neurological History: Reports: None Psychiatric History: Reports: None Endocrine/Metabolic History: Reports: Obesity/BMI 30+ Hematologic History: Reports: None Immunologic History: Reports: None Oncologic (Cancer) History: Reports: None Dermatologic History: Reports: None - Infectious Disease History Infectious Disease History: Reports: Chicken Pox, Influenza - Past Surgical History Head Surgeries/Procedures: Reports: None HEENT Surgical History: Reports: Tonsillectomy Cardiovascular Surgical History: Reports: None Respiratory Surgical History: Reports: None GI Surgical History: Reports: None Male Surgical History: Reports: None Endocrine Surgical History: Reports: None Neurological Surgical History: Reports: None, Other (See Below) Musculoskeletal Surgical History: Reports: Carpal Tunnel Oncologic Surgical History: Reports: None Dermatological Surgical History: Reports: Other (See Below) - SUBSTANCE USE Tobacco Use Status *Q: Never Tobacco User - HOME MEDS Home Medications: Home Meds Fish Oil/DHA/EPA [Fish Oil 1,200 MG] 1 tab PO DAILY 04/26/20 [History] Turmeric Root Extract [Turmeric] 1 tab PO DAILY 04/26/20 [History] - CURRENT (IN HOUSE) MEDS Current Meds: Current Medications Lactated Ringer's (Ringers, Lactated) 1,000 mls @ 125 mls/hr IV ASDIRECTED [facility] Last Admin: 04/28/20 06:57 Dose: 125 mls/hr Documented by: Discontinued Medications Cefazolin Sodium/Dextrose 2 gm (/ Premix) 50 mls @ 100 mls/hr IV ONETIME ONE Stop: 04/28/20 05:29
[2020-04-28] MEDS ORDERED: Midazolam 1 MG/ML 2 ML SDV ONE (07:29)
[2020-04-28] MEDS ORDERED: Propofol 200 MG/20 ML SDV ONE (07:29)
[2020-04-28] MEDS ORDERED: fentaNYL 100 MCG/2 ML SDV ONE (07:29)
[2020-04-28] MEDS ORDERED: Ondansetron 4 MG/2 ML SDV ONE (07:30)
[2020-04-28] MEDS ORDERED: ceFAZolin/Dextrose,Iso-Osmotic 2 GM/50 ML Duplex Bag (Premix) IV ONE (07:51)
[2020-04-28] MEDS ORDERED: Dexamethasone 4 MG/ML 5 ML MDV ONE (08:16)
[2020-04-28] MEDS ORDERED: HYDROmorphone 2 MG/ML Syringe IVPUSH PRN (08:23)
[2020-04-28] MEDS ORDERED: 50% Dextrose in Water 50 ML Syringe IVPUSH PRN (08:23)
[2020-04-28] MEDS ORDERED: Albuterol 0.083% 2.5 MG/3 ML Neb Soln NEB PRN (08:23)
[2020-04-28] MEDS ORDERED: Naloxone 0.4 MG/ML Syringe IVPUSH PRN (08:23)
[2020-04-28] MEDS ORDERED: Atropine 0.1 MG/ML 10 ML Syringe IVPUSH PRN ×2 (08:23)
[2020-04-28] MEDS ORDERED: Ondansetron 4 MG/2 ML SDV IVPUSH PRN (08:23)
[2020-04-28] MEDS ORDERED: fentaNYL 100 MCG/2 ML SDV IVPUSH PRN (08:23)
[2020-04-28] MEDS ORDERED: EPINEPHrine 1:10,000 1 MG/10 ML Syringe IVPUSH PRN (08:23)
[2020-04-28] MEDS ORDERED: Ketorolac 30 MG/ML SDV ONE (08:24)
--- NOTE | 2020-04-28 09:04 | PCM.OPNOTE ---
- General Post-Op/Procedure Note Date of Surgery/Procedure: 04/28/20 Operative Procedure(s): mass excisional biopsy 1) scalp 2) neck Findings: both mass excised en bloc 1) scalp incision is 3.1 X 2 cm 2) neck incision 3.1 X 2 cm; [id number] Pre Op Diagnosis: scalp mass and neck mass Post-Op Diagnosis: Same Anesthesia Technique: General LMA Primary Surgeon: Jeremy Carranza Pathology: sent Complications: None Condition: Good
--- NOTE | 2020-04-28 09:22 | PCM.POSTAN ---
POST ANESTHESIA ASSESSMENT - MENTAL STATUS Mental Status: Alert, Oriented - VITAL SIGNS Vital Signs: Last Vital Signs Temp 97.3 F 04/28/20 08:55 Pulse 63 04/28/20 09:15 Resp 13 04/28/20 09:15 BP 110/70 04/28/20 09:15 Pulse Ox 95 04/28/20 09:15 - RESPIRATORY Respiratory Status: Respiratory Rate WNL, Airway Patent, O2 Saturation Stable - CARDIOVASCULAR CV Status: Pulse Rate WNL, Blood Pressure Stable - GASTROINTESTINAL GI Status: No Symptoms - POST OP HYDRATION Hydration Status: Adequate & Stable
--- NOTE | 2020-04-28 09:22 | PCM48HPAN ---
Post Anesthesia Note - EVALUATION WITHIN 48HRS OF ANESTHETIC Vital Signs in Normal Range: Yes Patient Participated in Evaluation: Yes Respiratory Function Stable: Yes Airway Patent: Yes Cardiovascular Function Stable: Yes Hydration Status Stable: Yes Pain Control Satisfactory: Yes Nausea and Vomiting Control Satisfactory: Yes Mental Status Recovered: Yes Vital Signs: Last Vital Signs Temp 97.3 F 04/28/20 08:55 Pulse 63 04/28/20 09:15 Resp 13 04/28/20 09:15 BP 110/70 04/28/20 09:15 Pulse Ox 95 04/28/20 09:15
[2020-04-28 10:41] VITALS: BP 122/74; PULSE 68
--- NOTE | 2020-04-28 10:52 | OR ---
SURGEON: Jeremy Carranza MD DATE OF PROCEDURE: 04/28/2020 PREOPERATIVE DIAGNOSIS: Scalp mass and neck mass. PROCEDURE PERFORMED: Excisional biopsy. PRIMARY SURGEON: Jeremy Carranza MD COMPLICATIONS: None. FINDINGS: The scalp mass is excised en bloc and incision is 3.1 x 2 cm and the neck mass is excised en bloc and incision is 3.1 x 2 cm. DESCRIPTION OF PROCEDURE: The patient was taken to the operating room and placed in a supine position. Upon the induction of LMA, the patient was repositioned into a right side down, left side up decub position, and the patient was then prepped and draped in a sterile fashion. Prior to this, the patient's hair had been shaved to around the incision for surgery. Time-out was being called, the patient identified, procedure identified, antibiotic given. Procedure then started. First was on the scalp lesion, which was a little bit toward the left side of the posterior occipital area, and using a 15 blade, a fish-mouth incision was made. Incision was 3.1 x 2 cm and the whole mass was excised and sent for pathology. Hemostasis achieved by the use of cautery and the wound was closed with 3-0 Ethilon followed with bacitracin. Attention was now turned to the neck lesion, which was right in the midline of the neck and again a fish-mouth incision was made. Incision was 3.1 x 2 cm and the mass excised en bloc and good hemostasis achieved by the use of electrocautery. The neck mass was right in the middle of the posterior neck, in fact was right in the neck crease very close to the back. Wound was then closed with 3-0 Ethilon and followed with appropriate dressing. The patient was awakened, extubated, repositioned, and transferred to the recovery room in hemodynamically stable condition. The patient tolerated the procedure well. There were no intraoperative complication. Dr. Carranza was present through the whole procedure. THUAN / CYNDY /[id number]
== END 2020-04-28 10:39 | disposition home or self-care (01) ==
LOC: MW.SDS 06:43
PROVIDERS: ATTEND Surgery
DX: L72.12 Trichodermal cyst (principal); L72.3 Sebaceous cyst; I10 Essential (primary) hypertension; E66.9 Obesity, unspecified; Z01.812 Encounter for preprocedural laboratory examination; Z20.822 Contact with and (suspected) exposure to COVID-19; Z79.899 Other long term (current) drug therapy; Z98.890 Other specified postprocedural states; Z68.32 Body mass index [BMI] 32.0-32.9, adult
CPT/HCPCS: 11422; 11423; 88304; J0131; J0690; J1100; J1885; J2001; J2250; J2704; J7120; 00300; J2405; J3010

== ENCOUNTER 2022-11-22 09:51 | Day surgery (SDC) | payer OTHER ==
[~2022-11-22 09:51] MED LIST changes: +Lidocaine 1% 5 ML VIAL ONE; -ceFAZolin 2 GM in Premix Bag 1 BAG IV ONE; +propofoL 50 ML ONE
[2022-11-22 12:53] VITALS: BP 126/79; PULSE 50
== END 2022-11-22 11:50 | disposition home or self-care (01) ==
LOC: MW.SDS 09:51
PROVIDERS: ATTEND Surgery
DX: Z12.11 Encounter for screening for malignant neoplasm of colon (principal); K57.30 Diverticulosis of large intestine without perforation or abscess without bleeding; F43.10 Post-traumatic stress disorder, unspecified; M15.9 Polyosteoarthritis, unspecified; E66.9 Obesity, unspecified; Z80.0 Family history of malignant neoplasm of digestive organs; Z79.899 Other long term (current) drug therapy
CPT/HCPCS: 45378; J2704; J7120; 00812; J3490

== ENCOUNTER 2025-03-01 08:32 | Emergency (ER) | payer OTHER ==
[2025-03-01] MEDS ORDERED: Sodium Chloride 0.9% 2.5 ML Syringe FLUSH PRN (08:33)
[2025-03-01] MEDS ORDERED: Sodium Chloride 0.9% 10 ML Syringe FLUSH PRN (08:33)
[2025-03-01] MEDS: Nitroglycerin 0.4 MG Tab.SL SL PRN (08:46)
[2025-03-01 08:53] LABS: BASOPHILS ABSOLUTE AUTO 0.04 K/uL (0.00-0.20); BASOPHILS PERCENT AUTO 0.7 % (0.0-1.0); EOSINOPHILS ABSOLUTE AUTO 0.25 K/uL (0.00-0.45); EOSINOPHILS PERCENT AUTO 4.5 % (0.0-6.0); IMMATURE GRAN ABSOLUTE AUTO 0.02 K/uL (0.00-0.05); IMMATURE GRAN PERCENT AUTO 0.4 % (0.0-0.4); LYMPHOCYTES ABSOLUTE AUTO 1.75 K/uL (1.00-4.80); LYMPHOCYTES PERCENT AUTO 31.8 % (24.0-44.0); MEAN PLATELET VOLUME 9.0 fL (9.4-12.4); MONOCYTES ABSOLUTE AUTO 0.33 K/uL (0.00-0.80); MONOCYTES PERCENT AUTO 6.0 % (0.0-8.0); NEUTROPHILS ABSOLUTE AUTO 3.11 K/uL (1.80-7.70); NEUTROPHILS PERCENT AUTO 56.6 % (41.0-71.0); NRBC ABSOLUTE 0.00 K/uL (0.00-0.02); NRBC PERCENT 0.0 /100WBC (0.0-0.2); PLATELET COUNT,PLT 175 K/uL (150-400); RED BLOOD CELL COUNT 4.81 M/uL (4.52-5.90); WHITE BLOOD CELL COUNT,WBC 5.50 K/uL (3.9-11.3)
[2025-03-01 09:08] LABS: INR 0.97 (0.86-1.11); PTT,PARTIAL THROMBOPLSTIN TIME 26.2 SEC (23.9-30.7)
[2025-03-01 09:26] LABS: A/G RATIO 1.2 (0.9-1.6); ALANINE AMINOTRANSFERASE,ALT 38 IU/L (14-63); ASPARTATE AMNIOTRANSFERASE,AST 22 IU/L (15-37); BILIRUBIN TOTAL 0.8 mg/dL (0.2-1.0); BLOOD UREA NITROGEN,BUN 18 mg/dL (7.0-18.0); CARBON DIOXIDE,CO2 29.7 mmol/L (21.0-32.0); CHLORIDE,CL 104 mmol/L (98-107); CREATININE 1.2 mg/dL (0.8-1.3); EST CRCL DRUG DOSING (CG) 79.94 mL/min; ETHANOL BLOOD MEDICAL <3 mg/dL; GLUCOSE RANDOM 94 mg/dL (74-106); POTASSIUM,K 4.1 mmol/L (3.5-5.1); PRO B-TYPE NATRIUR PEPT,BNPPRO 9 pg/mL (0-125); PROTEIN TOTAL,TP 7.1 g/dL (6.4-8.2); SODIUM,NA 140 mmol/L (136-148)
[2025-03-01 09:27] LABS: ESTIMATED GFR 73 mL/min (>60)
[2025-03-01 10:05] VITALS: PULSE 55
[2025-03-01] MEDS: Pantoprazole 40 MG in Sodium Chloride 0.9% 10 ML IVPUSH ONE (10:29)
[2025-03-01] MEDS: Ketorolac 30 MG/ML SDV IVPUSH ONE (10:30)
[2025-03-01 11:15] VITALS: BP 117/79
== END 2025-03-01 11:13 | disposition home or self-care (01) ==
LOC: MW.ED 08:32
DX: R07.9 Chest pain, unspecified (principal); R03.0 Elevated blood-pressure reading, without diagnosis of hypertension; E66.9 Obesity, unspecified; Z68.31 Body mass index [BMI] 31.0-31.9, adult
CPT/HCPCS: 36415; 71045; 80053; 80307; 83690; 83735; 83880; 84484; 85025; 85610; 85730; 93005; 96374; 96375; 99285; A9270; J1885; J2470; J8540; 93010; 99284